=== PATIENT | female | born 1975 | race Caucasian/White ===

== ENCOUNTER → 2017-12-13 10:51 | Outpatient (CLI) | payer OTHER, SELFPAY ==
[2017-12-13 12:19] LABS: T4 Free Direct 1.01 ng/dL (0.76-1.46); Thyroid Stim Hormone (TSH) 1.54 uIU/mL (0.358-3.74)
[2017-12-13 12:42] LABS: Pregnancy, Serum, hCG Quali. NEGATIVE Negative (0-9 Nonpreg)
[2017-12-18 03:06] LABS: DHEA Sulfate 174.7 ug/dL (57.3-279.2); Testosterone, % Free 1.81 % (0.50-2.80); Testosterone, Free 0.47 ng/dL (0.10-0.85); Testosterone, Total 26 ng/dL (8-48)
[2017-12-18 11:08] LABS: Androstenedione 63 ng/dL (41-262); Sex Hormone-binding Globulin 43.2 nmol/L (24.6-122.0)
== END ==
PROVIDERS: Family Provider Family Medicine; PCP Family Medicine; Referring Provider Dermatology Pediatric Dermatology; Visit Provider Dermatology Pediatric Dermatology
DX: L68.0 Hirsutism (principal)
CPT/HCPCS: 36415; 82157; 82627; 83001; 84270; 84402; 84403; 84439; 84443; 84703; 82626